=== PATIENT | female | born 1985 | race Caucasian/White ===

== ENCOUNTER 2019-06-01 05:30 | Day surgery (SDC) | payer MEDICARE ==
[~2019-06-01] VITALS: Ht 170.2 cm; Wt 122.5 kg
[~2019-06-01 05:30] MED LIST: BUDE52H IH; IPRNEB IH; LEVA1.2542 IH; OS500 PO; PRED10TA3 PO; RISE35 PO
[2019-06-01] MEDS ORDERED: SODIUM CHLORIDE 0.9% 1000ML 1,000 ML IV ONE (06:03)
[2019-06-01 06:09] VITALS: BP 99/68
[2019-06-01] MEDS ORDERED: FURO40TA5 PO (06:39)
[2019-06-01] MEDS ORDERED: SPIR50TA5 PO (06:39)
[2019-06-01] MEDS ORDERED: MOME17N NS (06:39)
[2019-06-01] MEDS ORDERED: IPRNEB IH (06:39)
[2019-06-01] MEDS ORDERED: METO-408 PO (06:39)
[2019-06-01] MEDS ORDERED: BUDE10.2 IH (06:39)
[2019-06-01] MEDS ORDERED: HYDR200T4 PO (06:39)
[2019-06-01] MEDS ORDERED: AZAT50TA PO (06:39)
[2019-06-01] MEDS ORDERED: OMEP40CA13 PO (06:39)
[2019-06-01] MEDS ORDERED: CARB15DR2 OU (06:39)
[2019-06-01] MEDS ORDERED: FEXO-59 PO (06:39)
[2019-06-01] MEDS ORDERED: AMOX1TAB16 PO (06:39)
[2019-06-01] MEDS ORDERED: PROPOFOL 1000 MG/100 ML 100 ML IV ONE (07:40)
[2019-06-01 08:18] VITALS: BP 137/67
[2019-06-01 08:23] VITALS: BP 132/67
[2019-06-01 08:28] VITALS: BP 122/73
[2019-06-01 08:35] VITALS: BP 124/86
== END 2019-06-01 08:50 | disposition home or self-care (01) ==
LOC: ENDO 05:30 → DAH 05:30 → ENDO 08:50
PROVIDERS: ATTEND Internal Medicine
DX: R19.7 Diarrhea, unspecified (principal); D12.4 Benign neoplasm of descending colon; C18.7 Malignant neoplasm of sigmoid colon; K29.50 Unspecified chronic gastritis without bleeding; K31.89 Other diseases of stomach and duodenum; E66.01 Morbid (severe) obesity due to excess calories; J45.998 Other asthma; K56.690 Other partial intestinal obstruction; Z80.0 Family history of malignant neoplasm of digestive organs; Z79.899 Other long term (current) drug therapy; Z90.49 Acquired absence of other specified parts of digestive tract; Z96.641 Presence of right artificial hip joint
CPT/HCPCS: 36415; 43239; 45380; 45381; 45385; 84703; 88305; 93005; A4215; A4221; A4222; A4606; A4663; J2704; J7030

== ENCOUNTER 2022-06-14 11:19 | Emergency (ER) | payer MEDICARE ==
[~2022-06-14] VITALS: Ht 170.2 cm; Wt 112.9 kg
[~2022-06-14 11:19] MED LIST changes: +AMOX1TAB16 PO; +AZAT50TA PO; +BUDE10.2 IH; -BUDE52H IH; +CARB15DR2 OU; +FEXO-263 PO; +FURO40TA5 PO; +HYDR200T4 PO; -LEVA1.2542 IH; +METO-408 PO; +MOME17SP4 NS; +OMEP40CA21 PO; -OS500 PO; -RISE35 PO; +SPIR50TA5 PO
[2022-06-14 11:54] LABS: BASOPHILS % (AUTO) 0.8 % (0.0-5.0); EOSINOPHILS % (AUTO) 0.2 % (0.0-8.0); HEMATOCRIT 42.6 % (36-48); LYMPHOCYTES % (AUTO) 6.7 % (21.0-51.0); MEAN CORPUSCULAR HEMOGLOBIN 25.7 pg (27.0-33.0); MONOCYTES % (AUTO) 4.7 % (3.0-13.0); PLATELET COUNT (AUTO) 316 K/uL (130-400); RED BLOOD CELL COUNT(AUTO) 5.13 MIL/uL (4.00-5.50); RED CELL DISTRIBUTION WIDTH 15.1 % (11.0-15.5); WHITE BLOOD COUNT (AUTO) 26.1 K/uL (4.8-10.8)
[2022-06-14 12:07] LABS: CREATININE 0.9 mg/dL (0.5-1.5); POTASSIUM 4.5 mmol/L (3.5-5.1)
[2022-06-14 12:12] LABS: ALBUMIN 3.4 g/dL (3.5-5.0)
[2022-06-14] MEDS ORDERED: HYDROCODONE/ACETAMINOPHEN 10/325 MG TAB PO ONE (12:30)
[2022-06-14 12:46] LABS: CRP QUANTITATIVE 22.7 mg/L (0.00-9.0); URIC ACID 4.1 mg/dL (2.6-7.2)
[2022-06-14] MEDS ORDERED: AZITHROMYCIN 250 MG TABLET PO ONE (13:30)
[2022-06-14] MEDS ORDERED: CEFTRIAXONE 1G VIAL IVP ONE (13:30)
[2022-06-14 13:54] LABS: APPEARANCE,URINE CLEAR (CLEAR); BILIRUBIN,URINE NEGATIVE (NEGATIVE); COLOR,URINE YELLOW (YELLOW); GLUCOSE, URINE (UA) 500 mg/dL (NEGATIVE); KETONES,URINE 40 mg/dL (NEGATIVE); LEUKOCYTE ESTERASE ,URINE NEGATIVE Leu/uL (NEGATIVE); NITRATE,URINE NEGATIVE (NEGATIVE); OCCULT BLOOD,URINE NEGATIVE (NEGATIVE); PROTEIN,URINE 50 mg/dL (NEGATIVE); UROBILINOGEN,URINE 0.2 mg/dL (0.2-1.0)
[2022-06-14 14:20] LABS: BACTERIA,URINE RARE /HPF (None Seen); MUCUS,URINE RARE LPF (None Seen); RBC,URINE 0-1 /HPF (0-1); SQUAMOUS EPITHELIAL CELL,UR MOD /HPF (0-2)
[2022-06-14] MEDS ORDERED: TRAM1TAB2 PO (14:38)
[2022-06-14] MEDS ORDERED: CEPH500B PO (14:38)
[2022-06-14 15:15] VITALS: BP 134/88
== END 2022-06-14 15:20 | disposition home or self-care (01) ==
LOC: EDH 11:19
DX: R22.32 Localized swelling, mass and lump, left upper limb (principal); T50.905A Adverse effect of unspecified drugs, medicaments and biological substances, initial encounter; E11.9 Type 2 diabetes mellitus without complications; E66.01 Morbid (severe) obesity due to excess calories; Z68.39 Body mass index [BMI] 39.0-39.9, adult; I10 Essential (primary) hypertension; Z90.49 Acquired absence of other specified parts of digestive tract; Z90.89 Acquired absence of other organs; Z98.890 Other specified postprocedural states; Z79.899 Other long term (current) drug therapy; Y92.89 Other specified places as the place of occurrence of the external cause
CPT/HCPCS: 99285; 96374; 71045; 84550; 80053; 85025; 87040 ×2; 83605; 86140; 81001; 36415; 73090; 76882; J0696

== ENCOUNTER 2022-11-17 17:18 | Emergency (ER) | payer MEDICARE ==
[~2022-11-17] VITALS: Ht 167.6 cm; Wt 99.8 kg
[~2022-11-17 17:18] MED LIST changes: +CEPH500B PO; +TRAM1TAB2 PO
[2022-11-17 18:15] LABS: BASOPHILS % (AUTO) 1.1 % (0.0-5.0); EOSINOPHILS % (AUTO) 1.2 % (0.0-8.0); LYMPHOCYTES % (AUTO) 13.1 % (21.0-51.0); MEAN CORPUSCULAR HEMOGLOBIN 26.3 pg (27.0-33.0); MEAN CORPUSCULAR HGB CONC 31.9 g/dL (32.0-36.0); MEAN CORPUSCULAR VOLUME 82.5 fL (79-99); NEUTROPHILS % (AUTO) 72.8 % (40.0-77.0); PLATELET COUNT (AUTO) 269 K/uL (130-400); RED BLOOD CELL COUNT(AUTO) 5.21 MIL/uL (4.00-5.50); RED CELL DISTRIBUTION WIDTH 14.5 % (11.0-15.5); WHITE BLOOD COUNT (AUTO) 16.5 K/uL (4.8-10.8)
[2022-11-17 18:37] LABS: ALBUMIN 3.3 g/dL (3.5-5.0); CREATININE 0.7 mg/dL (0.5-1.5); TOTAL PROTEIN, SERUM 6.7 g/dL (6.0-8.3)
[2022-11-17 18:43] LABS: POTASSIUM 2.9 mmol/L (3.5-5.1)
[2022-11-17] MEDS ORDERED: KCL 20 MEQ ERTAB PO ONE (19:23)
[2022-11-17] MEDS: KCL 20 MEQ ERTAB PO SCH ×2 (19:26→19:27)
[2022-11-17 20:48] VITALS: BP 128/68
== END 2022-11-17 20:49 | disposition home or self-care (01) ==
LOC: EDH 17:18
DX: E87.6 Hypokalemia (principal); M25.451 Effusion, right hip; E11.9 Type 2 diabetes mellitus without complications; I10 Essential (primary) hypertension; E66.01 Morbid (severe) obesity due to excess calories; Z68.35 Body mass index [BMI] 35.0-35.9, adult; Z90.49 Acquired absence of other specified parts of digestive tract; Z90.710 Acquired absence of both cervix and uterus
CPT/HCPCS: 36415; 73522; 73562; 80053; 85025